=== PATIENT | male | born 1940 | race Caucasian/White ===

== ENCOUNTER 2016-07-21 12:31 | Day surgery (SDC) | payer MEDICARE, BC ==
--- NOTE | ~2016-07-21 | EGD ---
EGD REPORT [facility] [address] [id number] NAME: ANDREW RUEDA III : [birth year] STATUS : REG [facility] PAT#: [id number] AGE: 75 ADM/REG DATE : 07/21/16 MR#: [id number] REPORT SERV DATE: 07/21/16 DICTATED BY: JERMAINE MATA DATE: 07/21/16 REPORT STATUS : Draft [facility] DATE: 07/21/16 [facility] Patient Name: Andrew Rueda Date of : 1940 Attending MD: JERMAINE MATA MD Procedure Date No Time: 07/21/2016 Procedure: Colonoscopy Indications: FH of Uterine Cancer - 1st degree relative, Personal history of colonic polyps Referring MD: JAD SINGLETON MD Medicines: Propofol per Anesthesia Complications: No immediate complications. Estimated blood loss: None. Procedure: Pre-Anesthesia Assessment: - After reviewing the risks and benefits, the patient was deemed in satisfactory condition to undergo the procedure. - Prior to the procedure, a History and Physical was performed, and patient medications and allergies were reviewed. The patient's tolerance of previous anesthesia was also reviewed. The risks and benefits of the procedure and the sedation options and risks were discussed with the patient. All questions were answered, and informed consent was obtained. Prior Anticoagulants: The patient has taken no previous anticoagulant or antiplatelet agents. ASA Grade Assessment: II - A patient with mild systemic disease. After reviewing the risks and benefits, the patient was deemed in satisfactory condition to undergo the procedure. After I obtained informed consent, the scope was passed under direct vision. Throughout the procedure, the patient's blood pressure, pulse, and oxygen saturations were monitored continuously. The CF [id number] was introduced through the anus and advanced to the cecum, identified by appendiceal orifice and ileocecal valve. The colonoscopy was performed without difficulty. The appendiceal orifice was photographed. The patient tolerated the procedure well. The quality of the bowel preparation was adequate. The bowel preparation used was polyethylene glycol (PEG). Scope withdrawal time was greater than 6 minutes. Findings: The perianal and digital rectal examinations were normal. Pertinent negatives include normal sphincter tone. A few small-mouthed diverticula were found in the sigmoid colon. EGD REPORT [address] [address] NAME: ANDERW RUEDA III : [birth year] STATUS : REG [facility]#: [id number] AGE: 75 ADM/REG DATE : 07/21/16 MR#: [id number] REPORT SERV DATE: 07/21/16 DICTATED BY: JERMAINE MATA DATE: 07/21/16 REPORT STATUS : Draft TRANSCRIBED BY: [employer] DATE: 07/21/16 The exam was otherwise without abnormality. Impression: - Mild diverticulosis in the sigmoid colon. - The examination was otherwise normal. Recommendation: - Discharge patient to home (ambulatory). - High fiber diet indefinitely. - Continue present medications. - No further routine surveillance colonscopy due to advanced age. - Return to GI clinic PRN. - Patient has a contact number available for emergencies. The signs and symptoms of potential delayed complications were discussed with the patient. Return to normal activities tomorrow. Written discharge instructions were provided to the patient. Procedure Code(s): --- Professional --- 65475, Colonoscopy, flexible, proximal to splenic flexure; diagnostic, with or without collection of specimen(s) by brushing or washing, with or without colon decompression (separate procedure) Diagnosis Code(s): --- Professional --- K57.30, Diverticulosis of large intestine without perforation or abscess without bleeding Z80.49, Family history of malignant neoplasm of other genital organs Z86.010, Personal history of colonic polyps CPT copyright 2013 [employer]. All rights reserved. The codes documented in this report are preliminary and upon brake specialist review may be revised to meet current compliance requirements. JERMAINE MATA MD 07/21/2016 3:13 PM This report has been signed electronically. Number of Addenda: 0 Note Initiated On: 07/21/2016 2:44 PM Scope Withdrawal Time 0 hours 6 minutes 14 seconds [address] [id number]
[~2016-07-21 12:31] MED LIST: ASAB PO; BEN25 PO; BENICAR20 PO; CALTRA600D PO; COZ50 PO; CYANO1000T PO; FISH-EPA1000 MG PO; GENTEAL 15 ML O15 ML OPH; GLUCCHONDR PO; LOP25 PO; MAALOX PO; PRAV10 PO; PRAVAC PO
== END 2016-07-21 23:59 | disposition home or self-care (01) ==
LOC: DMU 12:31
PROVIDERS: Internal Medicine Gastroenterology
PROC: 0DJD8ZZ Inspection of Lower Intestinal Tract, Via Natural or Artificial Opening Endoscopic (ICD-10-PCS; principal; 2016-07-21 13:45)
DX: Z12.11 Encounter for screening for malignant neoplasm of colon (principal); K57.30 Diverticulosis of large intestine without perforation or abscess without bleeding; I10 Essential (primary) hypertension; Z80.49 Family history of malignant neoplasm of other genital organs; Z86.010 Personal history of colon polyps; Z88.8 Allergy status to other drugs, medicaments and biological substances; Z79.82 Long term (current) use of aspirin; Z79.899 Other long term (current) drug therapy; Z90.89 Acquired absence of other organs; Z98.890 Other specified postprocedural states; Z85.46 Personal history of malignant neoplasm of prostate